=== PATIENT | male | born 1940 | race Caucasian/White ===

== ENCOUNTER 2016-09-29 11:39 | Emergency (ER) | payer OTHER ==
[~2016-09-29] VITALS: Ht 180.3 cm; Wt 95.3 kg
[~2016-09-29 11:39] MED LIST: APIX2.5T PO; CARV12.548 PO; FURO-149 PO; FURO-150 PO; GLIP2.5T3 PO; ISOS60TA4 PO; ROSU20TA PO; SYN75 PO; TAMS-11 PO; VITD2000 PO
--- NOTE | 2016-09-29 11:39 | NUR ---
BROUGHT IN BY REYNA DOMINGO FROM REPLACED BY [facility], PLACED IN HALLWAY BED AND TRIAGED. REPORT GIVEN TO ZAIDA
[2016-09-29 11:40] VITALS: BP 141/90; PULSE 87; RESP 20; TEMP 97.2; O2SAT 99
--- NOTE | 2016-09-29 11:50 | NUR ---
PT. BROUGHT IN TO THE ER [id number] BY EMS FROM [facility] FOR S/P FALL, STATES THAT HE WAS IN HIS ROOM IN BED, GOT UP THIS MORNING TO TURN THE HEATER ON IN HIS ROOM, STATES HE GOT UP THIS MORNING, HE WAS WALKING TOWARDS THE HEATER WITH HIS WALKER FELT DIZZY AND FELL, ASHLEY WALKER, STATES HE FELL ON HIS RIGHT SIDE, NOW HIS RIGHT KNEE HURTS, PAIN 7/10, FULL ROM, CAP REFIL <3 SECS
--- NOTE | 2016-09-29 11:59 | NUR ---
DR. PRIETO AT BEDSIDE EXAMINING THE PT.
--- NOTE | 2016-09-29 13:00 | NUR ---
PT. ADMITTED TO HAVE VOIDED IN BED, CHANGED LINENS, STATES COMFORT
[2016-09-29 13:37] LABS: BASOPHILS % (AUTO) 0.3 % (0.0-2.0); EOSINOPHILS # (AUTO) 0.2 K/uL (0.0-0.4); EOSINOPHILS % (AUTO) 2.3 % (0.0-4.0); HEMATOCRIT 37.5 % (36-54); HEMOGLOBIN 12.9 g/dL (14.0-18.0); LYMPHOCYTES # (AUTO) 0.8 K/uL (1.0-5.5); MEAN CORPUSCULAR HEMOGLOBIN 31 pg (27-31); MEAN CORPUSCULAR HGB CONC 34 % (32-36); MEAN CORPUSCULAR VOLUME 91 fL (79.0-98.0); MONOCYTES # (AUTO) 0.5 K/uL (0.0-1.0); MONOCYTES % (AUTO) 7.2 % (1.7-9.3); NEUTROPHILS # (AUTO) 5.5 K/uL (1.8-7.7); NEUTROPHILS % (AUTO) 79.2 % (40.0-70.0); PLATELET COUNT (AUTO) 138 K/uL (130-430); RED BLOOD CELL COUNT(AUTO) 4.14 MIL/uL (4.2-6.2); RED CELL DISTRIBUTION WIDTH 14.4 % (9.0-15.0)
[2016-09-29 13:49] LABS: ANION GAP 4 (5-15); CALCIUM 8.7 mg/dL (8.4-11.0); CHLORIDE 105 mmol/L (98-107); CREATININE 1.72 mg/dL (0.55-1.30); GLUCOSE 117 mg/dL (70-99); POTASSIUM 3.4 mmol/L (3.5-5.1); SODIUM SERUM 142 mmol/L (136-145); UREA NITROGEN, BLOOD 22 mg/dL (8-21)
[2016-09-29 13:53] LABS: INR 1.1 (0.80-1.20); PROTHROMBIN TIME 11.5 SECS (9.5-12.5)
[2016-09-29 13:54] LABS: ALANINE AMINOTRANSFERASE 25 U/L (12-78); ALBUMIN 2.7 g/dL (3.4-4.8); ASPARTATE AMINOTRANSFERASE 19 U/L (10-37); CREATINE KINASE, TOTAL 36 U/L (39-308); TOTAL BILIRUBIN 0.8 mg/dL (0.0-1.0); TOTAL PROTEIN, SERUM 6.2 g/dL (6.4-8.3)
--- NOTE | 2016-09-29 15:00 | NUR ---
PT. MOVED TO ROOM 2, DAUGHTER WAS CALLED TO APPOINTMENT MANAGER THE PT. AFTER DISCHARGE[facility]
--- NOTE | 2016-09-29 16:00 | NUR ---
[facility] WAS REACHED OUT TO, STAFF STATED THAT THERE IS NO TRANSPORTATION AVAILABLE FOR THE PT. ENOLOGIST, ROSELYN ADVISED TO ARRANGE FOR TRANSPORTATION
--- NOTE | 2016-09-29 18:00 | NUR ---
PT. PROVIDED REGULAR FOOD TRAY, ATE 70% OF THE FOOD
[2016-09-29 20:00] VITALS: BP 141/68; PULSE 78; RESP 16; TEMP 98.7; O2SAT 99
--- NOTE | 2016-09-29 20:00 | NUR ---
Patient given written and verbal discharge instructions and verbalizes understanding. ER MD DR. PRIETO discussed with patient the results and treatment provided. Patient in stable condition. ID arm band removed. NO Rx given. Patient educated on pain management and to follow up with PMD. Pain Scale 0/10 Opportunity for questions provided and answered.
== END 2016-09-29 20:00 | disposition home or self-care (01) ==
LOC: SED 11:39
DX: S80.01XA Contusion of right knee, initial encounter (principal); R55 Syncope and collapse; R42 Dizziness and giddiness; E42 Marasmic kwashiorkor; E11.9 Type 2 diabetes mellitus without complications; I11.0 Hypertensive heart disease with heart failure; I50.9 Heart failure, unspecified; Z79.899 Other long term (current) drug therapy; W05.0XXA Fall from non-moving wheelchair, initial encounter; Y93.89 Activity, other specified; Y92.89 Other specified places as the place of occurrence of the external cause; Y99.8 Other external cause status
CPT/HCPCS: 36415; 70450-TC; 71010; 73564; 80053; 82550-TC; 83880; 84484; 85025; 85610-TC; 85730-TC; 93005; 99285

== ENCOUNTER 2017-01-02 14:29 | Inpatient (IN) | payer OTHER ==
[~2017-01-02] VITALS: Ht 182.9 cm; Wt 102.5 kg
[~2017-01-02 14:29] MED LIST changes: -FURO-150 PO
[2017-01-02 14:35] VITALS: BP_SYST 151
[2017-01-02 15:04] LABS: BASOPHILS # (AUTO) 0.1 K/uL (0.0-0.2); BASOPHILS % (AUTO) 1.2 % (0.0-2.0); EOSINOPHILS # (AUTO) 0.2 K/uL (0.0-0.4); EOSINOPHILS % (AUTO) 3.4 % (0.0-4.0); HEMATOCRIT 35.2 % (36-54); HEMOGLOBIN 11.8 g/dL (14.0-18.0); LYMPHOCYTES # (AUTO) 0.6 K/uL (1.0-5.5); LYMPHOCYTES % (AUTO) 8.7 % (20.5-51.5); MEAN CORPUSCULAR HEMOGLOBIN 31 pg (27-31); MEAN CORPUSCULAR HGB CONC 34 % (32-36); MEAN CORPUSCULAR VOLUME 92 fL (79.0-98.0); MONOCYTES # (AUTO) 0.9 K/uL (0.0-1.0); MONOCYTES % (AUTO) 13.5 % (1.7-9.3); NEUTROPHILS # (AUTO) 4.5 K/uL (1.8-7.7); NEUTROPHILS % (AUTO) 73.2 % (40.0-70.0); PLATELET COUNT (AUTO) 119 K/uL (130-430); RED BLOOD CELL COUNT(AUTO) 3.84 MIL/uL (4.2-6.2); RED CELL DISTRIBUTION WIDTH 15.3 % (9.0-15.0); WHITE BLOOD COUNT (AUTO) 6.3 K/uL (4.8-10.8)
[2017-01-02 15:10] LABS: ANION GAP 6 (5-15); CALCIUM 8.3 mg/dL (8.4-11.0); CHLORIDE 105 mmol/L (98-107); CREATININE 2.23 mg/dL (0.55-1.30); GLUCOSE 239 mg/dL (70-99); POTASSIUM 4.1 mmol/L (3.5-5.1); SODIUM SERUM 138 mmol/L (136-145); UREA NITROGEN, BLOOD 37 mg/dL (8-21)
[2017-01-02 15:13] LABS: INR 1.1 (0.80-1.20); PROTHROMBIN TIME 11.7 SECS (9.5-12.5)
[2017-01-02 15:15] LABS: ALANINE AMINOTRANSFERASE 14 U/L (12-78); ALBUMIN 2.9 g/dL (3.4-4.8); ASPARTATE AMINOTRANSFERASE 14 U/L (10-37); CREATINE KINASE, TOTAL 35 U/L (39-308); TOTAL BILIRUBIN 0.5 mg/dL (0.0-1.0); TOTAL PROTEIN, SERUM 5.9 g/dL (6.4-8.3)
[2017-01-02] MEDS ORDERED: ENALAPRILAT DIHYDRATE 1.25 MG/ML VIAL IVP ONE (15:30)
[2017-01-02] MEDS ORDERED: NITROGLYCERIN 1 INCH (GM) OINT. TP ONE (15:30)
[2017-01-02] MEDS ORDERED: FUROSEMIDE 40 MG/4 ML VIAL IVP ONE (16:15)
[2017-01-02] MEDS ORDERED: KETOROLAC TROMETHAMINE 30 MG VIAL IVP ONE (16:30)
[2017-01-02 17:10] VITALS: BP_SYST 154
[2017-01-02] MEDS ORDERED: DEXTROSE 50% JECT 50 ML DISP.SYRIN IVP PRN (20:00)
[2017-01-02] MEDS: APIXABAN 2.5 MG TABLET PO SCH (21:49)
[2017-01-02] MEDS: ATORVASTATIN 20 MG TABLET PO SCH (21:49)
[2017-01-02] MEDS: CARVEDILOL 12.5 MG TABLET (COREG) PO SCH (21:51)
[2017-01-03 00:45] VITALS: BP_SYST 139
[2017-01-03 04:00] VITALS: BP_SYST 142
[2017-01-03] MEDS: INSULIN REGULAR, HUMAN 100 UNITS/ML, 10 ML VIAL (novoLIN R) SUBCUT PRN ×3 (06:31→23:48)
[2017-01-03] MEDS: LEVOTHYROXINE SODIUM 0.075 MG TABLET PO SCH (06:31)
[2017-01-03 06:39] LABS: ANION GAP 5 (5-15); BASOPHILS % (AUTO) 0.4 % (0.0-2.0); CALCIUM 8.6 mg/dL (8.4-11.0); CHLORIDE 105 mmol/L (98-107); CREATININE 2.22 mg/dL (0.55-1.30); EOSINOPHILS # (AUTO) 0.2 K/uL (0.0-0.4); EOSINOPHILS % (AUTO) 3.8 % (0.0-4.0); GLUCOSE 170 mg/dL (70-99); HEMATOCRIT 36.3 % (36-54); HEMOGLOBIN 12.2 g/dL (14.0-18.0); LYMPHOCYTES # (AUTO) 0.6 K/uL (1.0-5.5); MEAN CORPUSCULAR HEMOGLOBIN 31 pg (27-31); MEAN CORPUSCULAR HGB CONC 34 % (32-36); MEAN CORPUSCULAR VOLUME 91 fL (79.0-98.0); MONOCYTES # (AUTO) 0.7 K/uL (0.0-1.0); NEUTROPHILS # (AUTO) 4.6 K/uL (1.8-7.7); NEUTROPHILS % (AUTO) 74.8 % (40.0-70.0); PLATELET COUNT (AUTO) 106 K/uL (130-430); POTASSIUM 3.8 mmol/L (3.5-5.1); RED BLOOD CELL COUNT(AUTO) 3.99 MIL/uL (4.2-6.2); RED CELL DISTRIBUTION WIDTH 15.3 % (9.0-15.0); SODIUM SERUM 139 mmol/L (136-145); UREA NITROGEN, BLOOD 41 mg/dL (8-21); WHITE BLOOD COUNT (AUTO) 6.1 K/uL (4.8-10.8)
[2017-01-03 08:00] VITALS: BP_SYST 147
[2017-01-03] MEDS ORDERED: FUROSEMIDE 40 MG/4 ML VIAL IVP SCH (09:00)
[2017-01-03] MEDS: TAMSULOSIN HCL 0.4 MG CAP PO SCH (09:39)
[2017-01-03] MEDS: ISOSORBIDE MONONITRATE 30 MG TAB.ER.24H PO SCH (09:39)
[2017-01-03] MEDS: APIXABAN 2.5 MG TABLET PO SCH ×2 (09:41→21:59)
[2017-01-03] MEDS: CARVEDILOL 12.5 MG TABLET (COREG) PO SCH ×2 (09:41→22:00)
[2017-01-03] MEDS: FUROSEMIDE 40 MG/4 ML VIAL IVP SCH ×2 (09:42→21:59)
[2017-01-03] MEDS: glipiZIDE XL 2.5 MG/TAB (GLUCOTROL XL) PO SCH (09:42)
[2017-01-03 12:37] VITALS: BP_SYST 140
[2017-01-03 16:37] VITALS: BP_SYST 143
[2017-01-03 19:30] VITALS: BP_SYST 158
[2017-01-03] MEDS: ATORVASTATIN 20 MG TABLET PO SCH (21:59)
[2017-01-03] MEDS ORDERED: ZOLPIDEM TARTRATE 5 MG TABLET PO ONE (23:15)
[2017-01-03] MEDS: ACETAMINOPHEN 325 MG TABLET PO PRN (23:35)
[2017-01-04 01:21] VITALS: BP_SYST 145
[2017-01-04] MEDS: INSULIN REGULAR, HUMAN 100 UNITS/ML, 10 ML VIAL (novoLIN R) SUBCUT PRN ×2 (05:59→12:09)
[2017-01-04] MEDS: LEVOTHYROXINE SODIUM 0.075 MG TABLET PO SCH (06:18)
[2017-01-04 07:36] VITALS: BP_SYST 155
[2017-01-04] MEDS: FUROSEMIDE 40 MG/4 ML VIAL IVP SCH ×2 (09:06→20:41)
[2017-01-04] MEDS: TAMSULOSIN HCL 0.4 MG CAP PO SCH (09:07)
[2017-01-04] MEDS: CARVEDILOL 12.5 MG TABLET (COREG) PO SCH ×2 (09:07→20:29)
[2017-01-04] MEDS: glipiZIDE XL 2.5 MG/TAB (GLUCOTROL XL) PO SCH (09:07)
[2017-01-04] MEDS: APIXABAN 2.5 MG TABLET PO SCH ×2 (09:07→20:29)
[2017-01-04] MEDS: ISOSORBIDE MONONITRATE 30 MG TAB.ER.24H PO SCH (09:08)
[2017-01-04] MEDS: ACETAMINOPHEN 325 MG TABLET PO PRN (10:52)
[2017-01-04 11:48] VITALS: BP_SYST 126
[2017-01-04 16:03] VITALS: BP_SYST 136
[2017-01-04 19:40] VITALS: BP_SYST 169
[2017-01-04] MEDS: ATORVASTATIN 20 MG TABLET PO SCH (20:29)
[2017-01-04] MEDS: HYDROcodone/ACETAMIN 5-325 MG TAB (NORCO/ VICODIN) PO PRN (20:53)
[2017-01-04] MEDS ORDERED: LevALBUTEROL HCL 1.25 MG/0.5 ML *CONC.* VIAL.NEB (XOPENEX CONC.) INH ONE (20:54)
[2017-01-04 21:00] VITALS: BP_SYST 153
[2017-01-04] MEDS: LevALBUTEROL HCL 1.25 MG/0.5 ML *CONC.* VIAL.NEB (XOPENEX CONC.) INH PRN (23:57)
[2017-01-05 00:05] VITALS: BP_SYST 157
[2017-01-05] MEDS: LevALBUTEROL HCL 1.25 MG/0.5 ML *CONC.* VIAL.NEB (XOPENEX CONC.) INH PRN ×4 (02:05→21:05)
[2017-01-05 04:42] VITALS: BP_SYST 150
[2017-01-05] MEDS: LEVOTHYROXINE SODIUM 0.075 MG TABLET PO SCH (06:14)
[2017-01-05 08:20] VITALS: BP_SYST 159
[2017-01-05] MEDS: ISOSORBIDE MONONITRATE 30 MG TAB.ER.24H PO SCH (09:27)
[2017-01-05] MEDS: APIXABAN 2.5 MG TABLET PO SCH ×2 (09:27→21:05)
[2017-01-05] MEDS: TAMSULOSIN HCL 0.4 MG CAP PO SCH (09:27)
[2017-01-05] MEDS: CARVEDILOL 12.5 MG TABLET (COREG) PO SCH ×2 (09:28→21:08)
[2017-01-05] MEDS: glipiZIDE XL 2.5 MG/TAB (GLUCOTROL XL) PO SCH (09:28)
[2017-01-05] MEDS: FUROSEMIDE 40 MG/4 ML VIAL IVP SCH ×2 (09:29→21:13)
[2017-01-05 10:54] LABS: BASOPHILS % (AUTO) 0.4 % (0.0-2.0); EOSINOPHILS % (AUTO) 0.4 % (0.0-4.0); HEMATOCRIT 37.3 % (36-54); HEMOGLOBIN 12.5 g/dL (14.0-18.0); LYMPHOCYTES # (AUTO) 0.4 K/uL (1.0-5.5); LYMPHOCYTES % (AUTO) 5.5 % (20.5-51.5); MEAN CORPUSCULAR HEMOGLOBIN 31 pg (27-31); MEAN CORPUSCULAR HGB CONC 34 % (32-36); MEAN CORPUSCULAR VOLUME 92 fL (79.0-98.0); MONOCYTES # (AUTO) 0.7 K/uL (0.0-1.0); MONOCYTES % (AUTO) 10.9 % (1.7-9.3); NEUTROPHILS # (AUTO) 5.5 K/uL (1.8-7.7); NEUTROPHILS % (AUTO) 82.8 % (40.0-70.0); PLATELET COUNT (AUTO) 132 K/uL (130-430); RED BLOOD CELL COUNT(AUTO) 4.08 MIL/uL (4.2-6.2); RED CELL DISTRIBUTION WIDTH 15.1 % (9.0-15.0); WHITE BLOOD COUNT (AUTO) 6.6 K/uL (4.8-10.8)
[2017-01-05 10:55] LABS: BLOOD GAS PH 7.398 (7.350-7.450)
[2017-01-05 10:56] LABS: ABG TOTAL HEMOGLOBIN 13.1 G/dL (12.0-18.0); BLOOD GAS BASE EXCESS 1.8 mmol/L (-3.0-3.0); BLOOD GAS COHb% 0.2 % (0.5-1.5); BLOOD GAS HHB 12.5 % (0.0-6.0); BLOOD O2Hb% 87.2 % (94.0-97.0)
[2017-01-05 11:24] LABS: ANION GAP 5 (5-15); CALCIUM 8.8 mg/dL (8.4-11.0); CHLORIDE 106 mmol/L (98-107); CREATININE 2.05 mg/dL (0.55-1.30); GLUCOSE 155 mg/dL (70-99); POTASSIUM 3.7 mmol/L (3.5-5.1); SODIUM SERUM 143 mmol/L (136-145); UREA NITROGEN, BLOOD 42 mg/dL (8-21)
[2017-01-05 11:29] LABS: ALANINE AMINOTRANSFERASE 15 U/L (12-78); ALBUMIN 3.4 g/dL (3.4-4.8); ASPARTATE AMINOTRANSFERASE 18 U/L (10-37); TOTAL BILIRUBIN 1.1 mg/dL (0.0-1.0); TOTAL PROTEIN, SERUM 6.7 g/dL (6.4-8.3)
[2017-01-05 12:25] VITALS: BP_SYST 119
[2017-01-05 16:35] VITALS: BP_SYST 144
[2017-01-05 19:11] LABS: BODY FLUID SOURCE/ TYPE PLEURAL; SOURCE/TYPE ,BODY FLUID THORACENTESIS
[2017-01-05 19:12] LABS: BF APPEARANCE UNSPUN SLIGHTLY CLOUDY (CLEAR); BODY FLUID COLOR PINK (LT YELLOW); BODY FLUID TOTAL VOLUME 1050 mL
[2017-01-05 19:14] LABS: WBC, BODY FLUID 156 /uL
[2017-01-05 19:15] LABS: EOSINOPHIL, BODY FLUID 0 %; LYMPHOCYTES, BODY FLUID 41 %; MONOCYTES,BODY FLUID 57 %; NEUTROPHIL, BODY FLUID 2 %; RBC, BODY FLUID 13200 /uL
[2017-01-05 19:35] VITALS: BP_SYST 160
[2017-01-05] MEDS: ATORVASTATIN 20 MG TABLET PO SCH (21:05)
[2017-01-05 22:29] LABS: BODY FLUID GLUCOSE 146 mg/dL; BODY FLUID TOTAL PROTEIN 1.9 g/dL
[2017-01-06] VITALS (7 sets, daily range): BP systolic 121–157
[2017-01-06 06:53] LABS: ANION GAP 1 (5-15); CALCIUM 8.6 mg/dL (8.4-11.0); CHLORIDE 107 mmol/L (98-107); CREATININE 1.92 mg/dL (0.55-1.30); GLUCOSE 123 mg/dL (70-99); POTASSIUM 3.3 mmol/L (3.5-5.1); SODIUM SERUM 142 mmol/L (136-145); UREA NITROGEN, BLOOD 39 mg/dL (8-21)
[2017-01-06] MEDS: LEVOTHYROXINE SODIUM 0.075 MG TABLET PO SCH (07:32)
[2017-01-06] MEDS: FUROSEMIDE 40 MG/4 ML VIAL IVP SCH (08:43)
[2017-01-06] MEDS: ALBUTEROL SULFATE 0.083% 2.5 MG/3 ML VIAL.NEB INH PRN ×2 (09:27→15:48)
[2017-01-06] MEDS: glipiZIDE XL 2.5 MG/TAB (GLUCOTROL XL) PO SCH (09:48)
[2017-01-06] MEDS: TAMSULOSIN HCL 0.4 MG CAP PO SCH (09:48)
[2017-01-06] MEDS: ISOSORBIDE MONONITRATE 30 MG TAB.ER.24H PO SCH (09:48)
[2017-01-06] MEDS: APIXABAN 2.5 MG TABLET PO SCH ×2 (09:48→22:14)
[2017-01-06] MEDS: CARVEDILOL 12.5 MG TABLET (COREG) PO SCH ×2 (09:49→22:15)
[2017-01-06] MEDS: HYDROcodone/ACETAMIN 5-325 MG TAB (NORCO/ VICODIN) PO PRN (13:21)
[2017-01-06] MEDS ORDERED: POTASSIUM CHLORIDE 20 MEQ TAB.PRT.SR PO ONE (14:00)
[2017-01-06] MEDS: INSULIN REGULAR, HUMAN 100 UNITS/ML, 10 ML VIAL (novoLIN R) SUBCUT PRN (17:33)
[2017-01-06] MEDS: ATORVASTATIN 20 MG TABLET PO SCH (22:14)
[2017-01-07] VITALS (7 sets, daily range): BP systolic 102–175
[2017-01-07] MEDS: LEVOTHYROXINE SODIUM 0.075 MG TABLET PO SCH (06:34)
[2017-01-07 06:36] LABS: CALCIUM 8.7 mg/dL (8.4-11.0); CHLORIDE 110 mmol/L (98-107); CREATININE 1.96 mg/dL (0.55-1.30); GLUCOSE 88 mg/dL (70-99); POTASSIUM 3.8 mmol/L (3.5-5.1); SODIUM SERUM 144 mmol/L (136-145); UREA NITROGEN, BLOOD 41 mg/dL (8-21)
[2017-01-07 06:56] LABS: ANION GAP < 3 (5-15)
[2017-01-07] MEDS: APIXABAN 2.5 MG TABLET PO SCH ×2 (08:58→21:34)
[2017-01-07] MEDS: ISOSORBIDE MONONITRATE 30 MG TAB.ER.24H PO SCH (08:59)
[2017-01-07] MEDS: TAMSULOSIN HCL 0.4 MG CAP PO SCH (09:00)
[2017-01-07] MEDS: glipiZIDE XL 2.5 MG/TAB (GLUCOTROL XL) PO SCH (09:01)
[2017-01-07] MEDS: CARVEDILOL 12.5 MG TABLET (COREG) PO SCH ×2 (09:23→21:36)
[2017-01-07 14:47] LABS: ABG TOTAL HEMOGLOBIN 12.8 G/dL (12.0-18.0); BLOOD GAS BASE EXCESS 3.4 mmol/L (-3.0-3.0); BLOOD GAS PH 7.437 (7.350-7.450); BLOOD O2Hb% 92.7 % (94.0-97.0)
[2017-01-07] MEDS: FUROSEMIDE 40 MG/4 ML VIAL IVP SCH (20:45)
[2017-01-07] MEDS: ATORVASTATIN 20 MG TABLET PO SCH (21:37)
[2017-01-07] MEDS: ALBUTEROL SULFATE 0.083% 2.5 MG/3 ML VIAL.NEB INH PRN (23:51)
[2017-01-08 00:52] VITALS: BP_SYST 137
[2017-01-08] MEDS: LEVOTHYROXINE SODIUM 0.075 MG TABLET PO SCH (06:14)
[2017-01-08 06:29] VITALS: BP_SYST 128
[2017-01-08 06:59] LABS: BASOPHILS % (AUTO) 0.3 % (0.0-2.0); EOSINOPHILS # (AUTO) 0.1 K/uL (0.0-0.4); HEMATOCRIT 37.3 % (36-54); HEMOGLOBIN 12.2 g/dL (14.0-18.0); LYMPHOCYTES # (AUTO) 0.9 K/uL (1.0-5.5); LYMPHOCYTES % (AUTO) 14.3 % (20.5-51.5); MEAN CORPUSCULAR HEMOGLOBIN 30 pg (27-31); MEAN CORPUSCULAR HGB CONC 33 % (32-36); MEAN CORPUSCULAR VOLUME 92 fL (79.0-98.0); MONOCYTES # (AUTO) 0.7 K/uL (0.0-1.0); NEUTROPHILS # (AUTO) 4.6 K/uL (1.8-7.7); NEUTROPHILS % (AUTO) 72.4 % (40.0-70.0); PLATELET COUNT (AUTO) 136 K/uL (130-430); RED BLOOD CELL COUNT(AUTO) 4.05 MIL/uL (4.2-6.2); RED CELL DISTRIBUTION WIDTH 15.5 % (9.0-15.0); WHITE BLOOD COUNT (AUTO) 6.3 K/uL (4.8-10.8)
[2017-01-08 07:35] LABS: ALANINE AMINOTRANSFERASE 17 U/L (12-78); ALBUMIN 2.9 g/dL (3.4-4.8); ASPARTATE AMINOTRANSFERASE 21 U/L (10-37); CALCIUM 8.6 mg/dL (8.4-11.0); CHLORIDE 106 mmol/L (98-107); GLUCOSE 113 mg/dL (70-99); POTASSIUM 3.4 mmol/L (3.5-5.1); SODIUM SERUM 142 mmol/L (136-145); TOTAL BILIRUBIN 0.9 mg/dL (0.0-1.0); TOTAL PROTEIN, SERUM 6.2 g/dL (6.4-8.3); UREA NITROGEN, BLOOD 40 mg/dL (8-21)
[2017-01-08] MEDS: ALBUTEROL SULFATE 0.083% 2.5 MG/3 ML VIAL.NEB INH PRN (07:35)
[2017-01-08 07:39] LABS: ANION GAP < 3 (5-15)
[2017-01-08 08:02] VITALS: BP_SYST 162
[2017-01-08] MEDS: TAMSULOSIN HCL 0.4 MG CAP PO SCH (08:27)
[2017-01-08] MEDS: APIXABAN 2.5 MG TABLET PO SCH (08:27)
[2017-01-08] MEDS: glipiZIDE XL 2.5 MG/TAB (GLUCOTROL XL) PO SCH (08:27)
[2017-01-08] MEDS: ISOSORBIDE MONONITRATE 30 MG TAB.ER.24H PO SCH (08:28)
[2017-01-08] MEDS: CARVEDILOL 12.5 MG TABLET (COREG) PO SCH (08:28)
[2017-01-08] MEDS: FUROSEMIDE 40 MG/4 ML VIAL IVP SCH (08:29)
[2017-01-08] MEDS: INSULIN REGULAR, HUMAN 100 UNITS/ML, 10 ML VIAL (novoLIN R) SUBCUT PRN (11:45)
[2017-01-08] MEDS ORDERED: POTASSIUM CHLORIDE 20 MEQ TAB.PRT.SR PO ONE (12:15)
[2017-01-08 16:00] VITALS: BP_SYST 145
[2017-01-08 16:51] VITALS: BP_SYST 145
[2017-01-08] MEDS ORDERED: CARVEDILOL 25 MG TABLET (COREG) PO SCH (21:00)
== END 2017-01-08 19:28 | DRG 291 ==
LOC: SED 14:29 → STU 16:25
PROVIDERS: ADMIT Internal Medicine Hospice and Palliative Medicine; ATTEND Internal Medicine Hospice and Palliative Medicine
PROC: 0W9B3ZX Drainage of Left Pleural Cavity, Percutaneous Approach, Diagnostic (ICD-10-PCS; principal; 2017-01-05)
DX: I13.0 Hypertensive heart and chronic kidney disease with heart failure and stage 1 through stage 4 chronic kidney disease, or unspecified chronic kidney disease (principal); I50.33 Acute on chronic diastolic (congestive) heart failure; N17.9 Acute kidney failure, unspecified; J90 Pleural effusion, not elsewhere classified; N18.4 Chronic kidney disease, stage 4 (severe); E11.22 Type 2 diabetes mellitus with diabetic chronic kidney disease; E11.51 Type 2 diabetes mellitus with diabetic peripheral angiopathy without gangrene; R09.02 Hypoxemia; E03.9 Hypothyroidism, unspecified; E78.5 Hyperlipidemia, unspecified; I25.10 Atherosclerotic heart disease of native coronary artery without angina pectoris; I48.2 Chronic atrial fibrillation; Z87.891 Personal history of nicotine dependence; Z95.1 Presence of aortocoronary bypass graft; Z68.30 Body mass index [BMI] 30.0-30.9, adult; Z79.899 Other long term (current) drug therapy
CPT/HCPCS: 32555; 36415; 36600; 71010; 76770; 80048; 80053; 82550-TC; 82803-TC; 82947-TC; 82962; 83615-TC; 83880; 84157-TC; 84484; 85025; 85610-TC; 85730-TC; 87070-TC; 87101; 87116; 88108; 89051-TC; 89060-TC; 93005; 93306; 94640; 94760; 96374; 96375; 97110-GP; 97116-GP; 97530-GP; 99285; C1729; J1815; J1885; J1940

== ENCOUNTER 2017-04-12 19:14 | Inpatient (IN) | payer OTHER ==
[~2017-04-12] VITALS: Ht 180.3 cm; Wt 105.7 kg
[2017-04-12 19:14] VITALS: BP_SYST 131
[~2017-04-12 19:14] MED LIST changes: -CARV12.548 PO; -FURO-149 PO
[2017-04-12 20:33] LABS: BASOPHILS % (AUTO) 0.2 % (0.0-2.0); EOSINOPHILS # (AUTO) 0.2 K/uL (0.0-0.4); EOSINOPHILS % (AUTO) 3.7 % (0.0-4.0); HEMATOCRIT 36.6 % (36-54); LYMPHOCYTES # (AUTO) 0.8 K/uL (1.0-5.5); MEAN CORPUSCULAR HEMOGLOBIN 30 pg (27-31); MEAN CORPUSCULAR HGB CONC 33 % (32-36); MEAN CORPUSCULAR VOLUME 92 fL (79.0-98.0); MONOCYTES # (AUTO) 0.5 K/uL (0.0-1.0); MONOCYTES % (AUTO) 8.4 % (1.7-9.3); NEUTROPHILS % (AUTO) 75.7 % (40.0-70.0); PLATELET COUNT (AUTO) 118 K/uL (130-430); RED BLOOD CELL COUNT(AUTO) 3.98 MIL/uL (4.2-6.2); RED CELL DISTRIBUTION WIDTH 15.5 % (9.0-15.0); WHITE BLOOD COUNT (AUTO) 6.5 K/uL (4.8-10.8)
[2017-04-12 20:44] LABS: INR 1.1 (0.80-1.20); PROTHROMBIN TIME 11.4 SECS (9.5-12.5)
[2017-04-12] MEDS ORDERED: MORPHINE 2 MG/ML INJ. SYRINGE IVP ONE (20:45)
[2017-04-12] MEDS ORDERED: PANTOPRAZOLE SODIUM 40 MG/VIAL (PROTONIX) IVP ONE (20:45)
[2017-04-12 20:48] LABS: ANION GAP 8 (5-15); CALCIUM 8.8 mg/dL (8.4-11.0); CHLORIDE 100 mmol/L (98-107); CREATININE 2.52 mg/dL (0.55-1.30); GLUCOSE 314 mg/dL (70-99); POTASSIUM 4.2 mmol/L (3.5-5.1); SODIUM SERUM 136 mmol/L (136-145); UREA NITROGEN, BLOOD 44 mg/dL (8-21)
[2017-04-12 20:53] LABS: ALANINE AMINOTRANSFERASE 22 U/L (12-78); ALBUMIN 3.2 g/dL (3.4-4.8); ASPARTATE AMINOTRANSFERASE 27 U/L (10-37); CHOLESTEROL 131 mg/dL (<200); HDL CHOLESTEROL 31 mg/dL (>45); LDL CHOLESTEROL 76 mg/dL (<100); TOTAL BILIRUBIN 0.6 mg/dL (0.0-1.0); TRIGLYCERIDES 169 mg/dL (30-150)
[2017-04-12] MEDS ORDERED: CARV25TA55 PO (21:04)
[2017-04-12] MEDS ORDERED: FURO-149 PO (21:04)
[2017-04-12] MEDS ORDERED: POTA8TAB4 PO (21:04)
[2017-04-12] MEDS ORDERED: LIP40 PO (21:04)
[2017-04-12] MEDS ORDERED: ACETAMINOPHEN 325 MG TABLET PO PRN (22:00)
[2017-04-12 22:20] VITALS: BP_SYST 148
[2017-04-13] VITALS (7 sets, daily range): BP systolic 103–134
[2017-04-13] MEDS: INSULIN REGULAR, HUMAN 100 UNITS/ML, 10 ML VIAL (novoLIN R) SUBCUT PRN ×2 (06:11→11:41)
[2017-04-13] MEDS ORDERED: LEVOTHYROXINE SODIUM 0.075 MG TABLET PO SCH (07:00)
[2017-04-13] MEDS ORDERED: FUROSEMIDE 20 MG TABLET PO SCH (09:00)
[2017-04-13] MEDS ORDERED: ISOSORBIDE MONONITRATE 30 MG TAB.ER.24H PO SCH (09:00)
[2017-04-13] MEDS ORDERED: ASPIRIN 81 MG TAB.CHEW PO SCH (09:00)
[2017-04-13] MEDS ORDERED: ENOXAPARIN SODIUM 30 MG/0.3 ML SYRINGE SUBCUT SCH (09:00)
[2017-04-13] MEDS ORDERED: POTASSIUM CHLORIDE 8 MEQ TABLET.SA PO SCH (09:00)
[2017-04-13] MEDS ORDERED: APIXABAN 2.5 MG TABLET PO SCH (09:00)
[2017-04-13] MEDS ORDERED: TAMSULOSIN HCL 0.4 MG CAP PO SCH (09:00)
[2017-04-13] MEDS ORDERED: CARVEDILOL 25 MG TABLET (COREG) PO SCH (09:00)
[2017-04-13] MEDS ORDERED: METOPROLOL TARTRATE 25 MG TABLET PO SCH (09:00)
[2017-04-13 14:29] LABS: ANION GAP 8 (5-15); CALCIUM 8.9 mg/dL (8.4-11.0); CHLORIDE 102 mmol/L (98-107); CREATININE 2.41 mg/dL (0.55-1.30); GLUCOSE 273 mg/dL (70-99); POTASSIUM 4.2 mmol/L (3.5-5.1); SODIUM SERUM 140 mmol/L (136-145); UREA NITROGEN, BLOOD 82 mg/dL (8-21)
[2017-04-13] MEDS ORDERED: ATORVASTATIN 20 MG TABLET PO SCH (21:00)
== END 2017-04-13 16:00 | disposition home or self-care (01) | DRG 392 ==
LOC: SED 19:14 → STU 21:46
DX: K21.9 Gastro-esophageal reflux disease without esophagitis (principal); N18.4 Chronic kidney disease, stage 4 (severe); E11.22 Type 2 diabetes mellitus with diabetic chronic kidney disease; I13.0 Hypertensive heart and chronic kidney disease with heart failure and stage 1 through stage 4 chronic kidney disease, or unspecified chronic kidney disease; I50.22 Chronic systolic (congestive) heart failure; I48.2 Chronic atrial fibrillation; E11.51 Type 2 diabetes mellitus with diabetic peripheral angiopathy without gangrene; I25.2 Old myocardial infarction; I25.10 Atherosclerotic heart disease of native coronary artery without angina pectoris; E78.5 Hyperlipidemia, unspecified; Z87.891 Personal history of nicotine dependence; Z95.1 Presence of aortocoronary bypass graft; Z79.899 Other long term (current) drug therapy; Z87.01 Personal history of pneumonia (recurrent)
CPT/HCPCS: 36415; 71010; 76770; 80048; 80053; 80061; 82962; 83880; 84484; 85025; 85610-TC; 85730-TC; 87081; 93005; 93306; 96374; 96375; 99285; C9113; J1650; J1815; J2270